=== PATIENT | male | born 1995 | race Caucasian/White ===

== ENCOUNTER 2016-10-31 12:43 | Emergency (ER) | payer OTHER ==
[~2016-10-31] VITALS: Ht 177.8 cm; Wt 86.4 kg
[~2016-10-31 12:43] MED LIST: OLAN5TAB2 PO; RISP1 PO; TRAZ-144 PO
[2016-10-31] MEDS ORDERED: PROP10 PO (12:54)
[2016-10-31] MEDS ORDERED: DOXE10 PO (12:54)
[2016-10-31] MEDS ORDERED: CEPH500 PO (12:54)
[2016-10-31 13:21] LABS: BASOPHILS # (AUTO) 0.07 K/uL (0.00-0.20); BASOPHILS % (AUTO) 0.7 % (0.0-2.0); EOSINOPHILS # (AUTO) 0.11 K/uL (0.00-0.70); EOSINOPHILS % (AUTO) 1.02 % (1.0-6.0); HEMOGLOBIN 15.7 g/dL (13.5-17.5); LYMPHOCYTES # (AUTO) 3.3 K/uL (1.0-4.8); LYMPHOCYTES % (AUTO) 31.2 % (22.0-44.0); MEAN CORPUSCULAR HEMOGLOBIN 29.4 pg (26.0-34.0); MEAN CORPUSCULAR HGB CONC 32.7 G/dL (31.0-37.0); MEAN CORPUSCULAR VOLUME 90 fL (80-100); MONOCYTES # (AUTO) 0.9 K/uL (0.1-1.0); MONOCYTES % (AUTO) 8.9 % (2.0-9.0); NEUTROPHILS # (AUTO) 6.1 K/uL (1.8-7.7); NEUTROPHILS % (AUTO) 58.2 % (40.0-70.0); PLATELET COUNT (AUTO) 279 K/uL (150-450); RED BLOOD CELL COUNT(AUTO) 5.35 MIL/uL (4.50-5.90); RED CELL DISTRIBUTION WIDTH 13.3 % (11.5-14.5); WHITE BLOOD COUNT (AUTO) 10.4 K/uL (4.5-11.0)
[2016-10-31] MEDS ORDERED: DiphenhydrAMINE HCL 50 MG/ML VIAL ONE ×2 (13:24→13:28)
[2016-10-31] MEDS ORDERED: HALOPERIDOL LACTATE 5 MG/ML VIAL ONE ×2 (13:24→13:27)
[2016-10-31] MEDS ORDERED: LORazepam 2 MG/ML VIAL ONE ×2 (13:24→13:27)
[2016-10-31 13:30] LABS: ANION GAP 13 mmol/L (8-16); CALCIUM, TOTAL 9.3 mg/dL (8.8-10.5); CARBON DIOXIDE 24 mmol/L (22-29); CHLORIDE 108 mmol/L (98-107); CREATININE 0.98 mg/dL (0.60-1.30); GLOMERULAR FILTR. RATE CALC > 60 mL/min (>60); POTASSIUM 3.5 mmol/L (3.5-5.1); SODIUM SERUM 145 mmol/L (136-145); UREA NITROGEN, BLOOD 11 mg/dL (7-18)
[2016-10-31] MEDS ORDERED: LORazepam 2 MG/ML VIAL IM ONE (13:30)
[2016-10-31] MEDS ORDERED: DiphenhydrAMINE HCL 50 MG/ML VIAL IM ONE (13:30)
[2016-10-31] MEDS ORDERED: HALOPERIDOL LACTATE 5 MG/ML VIAL IM ONE (13:30)
[2016-10-31 13:36] LABS: ALANINE AMINOTRANSFERASE 76 U/L (12-78); ALBUMIN 4.2 g/dL (3.4-5.0); ASPARTATE AMINOTRANSFERASE 33 U/L (15-37); BILIRUBIN,TOTAL 0.5 mg/dL (0.1-1.0); TOTAL PROTEIN, SERUM 7.9 g/dL (6.4-8.2)
[2016-10-31 18:44] VITALS: BP 98/52
== END 2016-10-31 19:00 | disposition short-term general hospital (02) ==
LOC: EMS 12:47 → EEVIPCON 12:47 → EMS 19:00
DX: R45.1 Restlessness and agitation (principal); R45.851 Suicidal ideations; F31.9 Bipolar disorder, unspecified; F20.9 Schizophrenia, unspecified; I10 Essential (primary) hypertension; F17.210 Nicotine dependence, cigarettes, uncomplicated
CPT/HCPCS: 36415; 80053; 85025; 96372; 99285; G0480; J1200; J1630; J2060

== ENCOUNTER 2022-11-01 07:05 | Inpatient (IN) | payer MEDICAID, OTHER ==
[~2022-11-01] VITALS: Ht 175.3 cm; Wt 85.3 kg
[~2022-11-01 07:05] MED LIST changes: +CEPH-558 PO; +DOXE10CA42 PO; -OLAN5TAB2 PO; +PROP10TA73 PO; -RISP1 PO; -TRAZ-144 PO
[2022-11-01] MEDS ORDERED: HYDR-4527 PO (07:09)
[2022-11-01] MEDS ORDERED: OLAN5TAB77 PO (07:09)
[2022-11-01] MEDS ORDERED: LAMO-24 PO (07:09)
[2022-11-01] MEDS ORDERED: LAMO25TA36 PO (07:09)
[2022-11-01 08:11] LABS: BASOPHILS % (AUTO) 0.5 % (0.0-2.0); EOSINOPHILS % (AUTO) 0.5 % (1.0-6.0); HEMOGLOBIN 14.4 g/dL (13.5-17.5); LYMPHOCYTES # (AUTO) 3.8 K/uL (1.0-4.8); LYMPHOCYTES % (AUTO) 30.2 % (22.0-44.0); MEAN CORPUSCULAR HEMOGLOBIN 29.3 pg (26.0-34.0); MEAN CORPUSCULAR HGB CONC 32.8 G/dL (31.0-37.0); MEAN CORPUSCULAR VOLUME 89 fL (80-100); MONOCYTES # (AUTO) 0.7 K/uL (0.1-1.0); MONOCYTES % (AUTO) 5.6 % (2.0-9.0); NEUTROPHILS % (AUTO) 63.2 % (40.0-70.0); PLATELET COUNT (AUTO) 359 K/uL (150-450); RED BLOOD CELL COUNT(AUTO) 4.92 MIL/uL (4.50-5.90)
[2022-11-01 08:20] LABS: ANION GAP 18 mmol/L (8-16); CARBON DIOXIDE 26 mmol/L (22-29); CHLORIDE 102 mmol/L (98-107); CREATININE 1.03 mg/dL (0.60-1.30); GLOMERULAR FILTR. RATE CALC > 60 mL/min (>60); GLUCOSE,RANDOM 130 mg/dL (70-110); POTASSIUM 3.7 mmol/L (3.5-5.1); SODIUM SERUM 146 mmol/L (136-145)
[2022-11-01 08:34] LABS: ALANINE AMINOTRANSFERASE 62 U/L (12-78); ALBUMIN 4.6 g/dL (3.4-5.0); ALKALINE PHOSPHATASE 65 U/L (46-116); ASPARTATE AMINOTRANSFERASE 34 U/L (15-37); BILIRUBIN,TOTAL 0.7 mg/dL (0.1-1.0); THYROID STIMULATING HORMONE 0.78 uIU/mL (0.36-3.74); TOTAL PROTEIN, SERUM 8.1 g/dL (6.4-8.2)
[2022-11-01 08:36] LABS: COVID AG,FIA SOURCE NASOPHARYNGEAL
[2022-11-01 08:46] LABS: AMPHET/METH SCREEN,URINE NEGATIVE (NEGATIVE); BARBITURATE SCREEN, URINE NEGATIVE (NEGATIVE); BENZODIAZEPINES SCREEN,URINE NEGATIVE (NEGATIVE); CANNABINOID SCREEN,URINE POSITIVE (NEGATIVE); COCAINE SCREEN,URINE NEGATIVE (NEGATIVE); METHADONE SCREEN, URINE NEGATIVE (NEGATIVE); OPIATE SCREEN,URINE NEGATIVE (NEGATIVE); PHENCYCLIDINE SCREEN,URINE NEGATIVE (NEGATIVE)
[2022-11-01] MEDS ORDERED: QUEtiapine FUMARATE 100 MG TABLET PO PRN (09:15)
[2022-11-02] MEDS: ZOLPIDEM TARTRATE 10 MG TABLET PO PRN ×2 (01:56→22:18)
[2022-11-02] MEDS: LamoTRIgine 25 MG TABLET PO SCH (13:02)
[2022-11-02 17:46] LABS: APPEARANCE,URINE TURBID (CLEAR); BILIRUBIN,URINE NEGATIVE (NEGATIVE); GLUCOSE, URINE (UA) NEGATIVE (NEGATIVE); KETONES,URINE NEGATIVE (NEGATIVE); LEUKOCYTE ESTERASE ,URINE NEGATIVE (NEGATIVE); NITRATE,URINE NEGATIVE (NEGATIVE); OCCULT BLOOD,URINE NEGATIVE (NEGATIVE); PROTEIN,URINE 30-70 mg/dL (NEGATIVE); UROBILINOGEN,URINE <=1.0 mg/dL (<=1.0)
[2022-11-02 18:07] VITALS: BP 112/76; PULSE 69; RESP 18; TEMP 97.6; O2SAT 98
[2022-11-02] MEDS: LORazepam 2 MG TABLET PO PRN (22:19)
[2022-11-02 22:51] VITALS: BP 121/89; PULSE 72; RESP 18; TEMP 97.9; O2SAT 99
[2022-11-03] MEDS ORDERED: LOPERAMIDE HCL 2 MG CAPSULE PO PRN (05:45)
[2022-11-03] MEDS ORDERED: PETROLATUM,WHITE 28 GM JELLY TP PRN (05:45)
[2022-11-03] MEDS ORDERED: MAGNESIUM HYDROXIDE SUSPENSION 30 ML UDCUP PO PRN (05:45)
[2022-11-03] MEDS ORDERED: IBUPROFEN 400 MG TABLET PO PRN (05:45)
[2022-11-03] MEDS ORDERED: ONDANSETRON HCL 4 MG TABLET PO PRN (05:45)
[2022-11-03] MEDS ORDERED: CloNIDine HCL 0.1 MG TABLET PO PRN (05:45)
[2022-11-03] MEDS ORDERED: MAG HYDROX/AL HYDROX/SIMETH ES 30 ML SUSPENSION UDCUP PO PRN (05:45)
[2022-11-03] MEDS ORDERED: DOCUSATE SODIUM 100 MG CAPSULE PO PRN (05:45)
[2022-11-03] MEDS ORDERED: ACETAMINOPHEN 325 MG TABLET PO PRN (05:45)
[2022-11-03] MEDS ORDERED: ALBUTEROL SULFATE HFA 90 MCG/PUFF 8 GM INHALER IH PRN (05:45)
[2022-11-03] MEDS ORDERED: GuaiFENesin/D-METHORPHAN [SUGAR-FREE] 200-20MG/10 ML SYRUP UDCUP PO PRN (05:45)
[2022-11-03] MEDS ORDERED: NICOTINE 14 MG/24 HOUR PATCH TD PRN (05:45)
[2022-11-03] MEDS: LamoTRIgine 25 MG TABLET PO SCH ×2 (08:30→11:15)
[2022-11-03 08:32] VITALS: BP 111/71; PULSE 79; RESP 17; TEMP 98; O2SAT 99
[2022-11-03] MEDS: LamoTRIgine 100 MG TABLET PO SCH (11:15)
[2022-11-03] MEDS: HydrOXYzine HCL 25 MG TABLET PO SCH ×2 (13:11→16:17)
[2022-11-03 20:25] VITALS: BP 114/61; PULSE 65; RESP 20; TEMP 97.7; O2SAT 100
[2022-11-03] MEDS: OLANZapine 5 MG TABLET PO SCH (20:41)
[2022-11-04] MEDS: HydrOXYzine HCL 25 MG TABLET PO SCH ×3 (08:22→16:09)
[2022-11-04] MEDS: LamoTRIgine 100 MG TABLET PO SCH (08:22)
[2022-11-04] MEDS: LamoTRIgine 25 MG TABLET PO SCH (08:22)
[2022-11-04 08:24] LABS: HEMOGLOBIN A1C 5.2 % (3.8-5.6)
[2022-11-04 08:31] LABS: APPEARANCE,URINE CLEAR (CLEAR); BILIRUBIN,URINE NEGATIVE (NEGATIVE); GLUCOSE, URINE (UA) NEGATIVE (NEGATIVE); KETONES,URINE TRACE mg/dL (NEGATIVE); LEUKOCYTE ESTERASE ,URINE NEGATIVE (NEGATIVE); NITRATE,URINE NEGATIVE (NEGATIVE); OCCULT BLOOD,URINE NEGATIVE (NEGATIVE); PH,URINE 6.5 (5.0-8.0); PROTEIN,URINE NEGATIVE (NEGATIVE); SPECIFIC GRAVITIY, URINE 1.011 (1.003-1.030); UROBILINOGEN,URINE <=1.0 mg/dL (<=1.0)
[2022-11-04 08:37] LABS: AMPHET/METH SCREEN,URINE NEGATIVE (NEGATIVE); BARBITURATE SCREEN, URINE NEGATIVE (NEGATIVE); BENZODIAZEPINES SCREEN,URINE NEGATIVE (NEGATIVE); CANNABINOID SCREEN,URINE POSITIVE (NEGATIVE); COCAINE SCREEN,URINE NEGATIVE (NEGATIVE); METHADONE SCREEN, URINE NEGATIVE (NEGATIVE); OPIATE SCREEN,URINE NEGATIVE (NEGATIVE); PHENCYCLIDINE SCREEN,URINE NEGATIVE (NEGATIVE)
[2022-11-04 08:39] VITALS: RESP 17
[2022-11-04 08:40] LABS: CHOL/HDL RATIO 3.4 (4.2-7.3); THYROID STIMULATING HORMONE 0.48 uIU/mL (0.36-3.74)
[2022-11-04] MEDS: OLANZapine 5 MG TABLET PO SCH (20:11)
[2022-11-04 20:24] VITALS: BP 127/77; PULSE 86; RESP 18; TEMP 97.6; O2SAT 98
[2022-11-05 08:18] VITALS: BP 95/57; PULSE 64; RESP 17; TEMP 97.6; O2SAT 60
[2022-11-05] MEDS: LamoTRIgine 25 MG TABLET PO SCH ×2 (08:18→09:00)
[2022-11-05] MEDS: HydrOXYzine HCL 25 MG TABLET PO SCH ×4 (08:18→17:38)
[2022-11-05] MEDS: LamoTRIgine 100 MG TABLET PO SCH ×2 (08:18→09:00)
[2022-11-05] MEDS: LORazepam 2 MG TABLET PO PRN (17:38)
[2022-11-05 20:24] VITALS: BP 124/62; PULSE 84; RESP 18; TEMP 98.2; O2SAT 98
[2022-11-05] MEDS: ZOLPIDEM TARTRATE 10 MG TABLET PO PRN (20:34)
[2022-11-05] MEDS: OLANZapine 5 MG TABLET PO SCH (20:34)
[2022-11-05] MEDS ORDERED: LamoTRIgine 25 MG TABLET PO SCH (21:00)
[2022-11-05] MEDS ORDERED: LamoTRIgine 100 MG TABLET PO SCH (21:00)
[2022-11-06 08:30] VITALS: BP 120/64; PULSE 74; RESP 17; TEMP 98.2; O2SAT 99
[2022-11-06] MEDS: HydrOXYzine HCL 25 MG TABLET PO SCH ×2 (08:47→12:40)
[2022-11-06 14:06] VITALS: RESP 18
[2022-11-06] MEDS ORDERED: OLAN5TAB52 PO (14:28)
[2022-11-06 15:06] VITALS: RESP 18
[2022-11-07] MEDS ORDERED: OLAN5TAB52 PO (05:28)
[2022-11-07] MEDS ORDERED: LAMO-24 PO (05:28)
[2022-11-07] MEDS ORDERED: LAMO25TA36 PO (05:28)
[2022-11-07] MEDS ORDERED: HYDR-4808 PO (05:28)
== END 2022-11-06 16:20 | disposition home or self-care (01) | DRG 750 ==
LOC: EMS 07:06 → B3A 11-02 14:12
PROVIDERS: ADMIT Psychiatry & Neurology Psychiatry; ATTEND Psychiatry & Neurology Psychiatry
DX: F25.1 Schizoaffective disorder, depressive type (principal); E87.0 Hyperosmolality and hypernatremia; R45.851 Suicidal ideations; F31.9 Bipolar disorder, unspecified; F15.20 Other stimulant dependence, uncomplicated; F41.9 Anxiety disorder, unspecified; R73.9 Hyperglycemia, unspecified; D72.829 Elevated white blood cell count, unspecified; I10 Essential (primary) hypertension; Z79.899 Other long term (current) drug therapy; Z91.148 Patient's other noncompliance with medication regimen for other reason; Z87.891 Personal history of nicotine dependence; Z91.51 Personal history of suicidal behavior
CPT/HCPCS: 80053; 80061; 80307; 81003; 83036; 84443; 85025; 86803; 87081; 87340; 99285; G0480

== ENCOUNTER 2024-12-17 16:14 | Inpatient (IN) | payer MEDICAID, OTHER ==
[~2024-12-17] VITALS: Ht 175.3 cm; Wt 98.1 kg
[~2024-12-17 16:14] MED LIST changes: -CEPH-558 PO; -DOXE10CA42 PO; +HYDR-4808 PO; +HYDR-5256 PO; +HYDR25TA83 PO; +LAMO-24 PO; +LAMO25TA36 PO; +OLAN5TAB52 PO; +PALI156D IM; -PROP10TA73 PO; +QUET100T PO
[2024-12-17] MEDS ORDERED: LORazepam 2 MG/ML VIAL ONE (16:42)
[2024-12-17] MEDS: LORazepam 2 MG/ML VIAL IM ONE (16:42)
[2024-12-17 17:56] LABS: PLATELET COUNT (AUTO) 292 K/uL (150-450); RED BLOOD CELL COUNT(AUTO) 4.46 MIL/uL (4.50-5.90); RED CELL DISTRIBUTION WIDTH 13.6 % (11.5-14.5); WHITE BLOOD COUNT (AUTO) 7.7 K/uL (4.5-11.0)
[2024-12-17 18:11] LABS: COVID AG,FIA SOURCE NASAL SWAB
[2024-12-17 18:13] LABS: CALCIUM, TOTAL 8.6 mg/dL (8.8-10.5); CREATININE 0.75 mg/dL (0.60-1.30); GLOMERULAR FILTR. RATE CALC > 60 mL/min (>60); GLUCOSE,RANDOM 128 mg/dL (70-110); SODIUM SERUM 137 mmol/L (136-145); UREA NITROGEN, BLOOD 12 mg/dL (7-18)
[2024-12-17 18:21] LABS: ALCOHOL, BLOOD (SERUM) < 3 mg/dL (0-10)
[2024-12-17 18:33] LABS: SARS-COV2 (COVID) ANTIGEN,FIA Negative (Negative)
[2024-12-18 00:37] VITALS: BP 119/81; PULSE 65; RESP 18; TEMP 97.4
[2024-12-18] MEDS ORDERED: NICOTINE 14 MG/24 HOUR PATCH TD PRN (05:45)
[2024-12-18] MEDS ORDERED: ALBUTEROL SULFATE HFA 90 MCG/PUFF 8 GM INHALER IH PRN (05:45)
[2024-12-18] MEDS ORDERED: IBUPROFEN 400 MG TABLET PO PRN (05:45)
[2024-12-18] MEDS ORDERED: PETROLATUM,WHITE 28 GM JELLY TP PRN (05:45)
[2024-12-18] MEDS ORDERED: GuaiFENesin/D-METHORPHAN [SUGAR-FREE] 200-20MG/10 ML SYRUP UDCUP PO PRN (05:45)
[2024-12-18] MEDS ORDERED: MAG HYDROX/ALUMINUM HYD/SIMETH ES 30 ML SUSPENSION UDCUP PO PRN (05:45)
[2024-12-18] MEDS ORDERED: LOPERAMIDE HCL 2 MG CAPSULE PO PRN (05:45)
[2024-12-18] MEDS ORDERED: ACETAMINOPHEN 325 MG TABLET PO PRN (05:45)
[2024-12-18] MEDS ORDERED: DOCUSATE SODIUM 100 MG CAPSULE PO PRN (05:45)
[2024-12-18] MEDS ORDERED: ONDANSETRON 4 MG TABLET PO PRN (05:45)
[2024-12-18] MEDS ORDERED: MAGNESIUM HYDROXIDE SUSPENSION 30 ML UDCUP PO PRN (05:45)
[2024-12-18 09:18] LABS: CHOL/HDL RATIO 3.5 (4.2-7.3); LDL CHOL (CALC.) 102.0 mg/dL (0-130)
[2024-12-18 09:20] VITALS: BP 115/79; PULSE 104; RESP 18; TEMP 97.8; O2SAT 100
[2024-12-18 10:12] LABS: ASPARTATE AMINOTRANSFERASE 73 U/L (15-37); CALCIUM, TOTAL 9.1 mg/dL (8.8-10.5); CREATININE 0.88 mg/dL (0.60-1.30); GLOMERULAR FILTR. RATE CALC > 60 mL/min (>60); GLUCOSE,RANDOM 102 mg/dL (70-110); SODIUM SERUM 137 mmol/L (136-145); TOTAL PROTEIN, SERUM 7.4 g/dL (6.4-8.2); UREA NITROGEN, BLOOD 15 mg/dL (7-18)
[2024-12-18 11:45] LABS: APPEARANCE,URINE CLEAR (CLEAR); GLUCOSE, URINE (UA) >=1000 mg/dL (NEGATIVE); LEUKOCYTE ESTERASE ,URINE NEGATIVE (NEGATIVE); NITRATE,URINE NEGATIVE (NEGATIVE); OCCULT BLOOD,URINE NEGATIVE (NEGATIVE); PH,URINE DRUG SCREEN 5.0 (5.0-8.0); SPECIFIC GRAVITIY, URINE 1.008 (1.003-1.030)
[2024-12-18 11:47] LABS: ALCOHOL, URINE DRUG SCREEN NEGATIVE (NEGATIVE); AMPHET/METH SCREEN,URINE NEGATIVE (NEGATIVE); BARBITURATE SCREEN, URINE NEGATIVE (NEGATIVE); CANNABINOID SCREEN,URINE NEGATIVE (NEGATIVE); COCAINE SCREEN,URINE NEGATIVE (NEGATIVE); METHADONE SCREEN, URINE NEGATIVE (NEGATIVE)
[2024-12-18 12:01] LABS: SQUAMOUS EPITHELIAL CELL,UR None Seen /LPF (None Seen)
[2024-12-18 21:23] VITALS: RESP 17
[2024-12-19 12:04] VITALS: BP 122/84; PULSE 100; RESP 18; TEMP 98; O2SAT 97
[2024-12-19 21:36] VITALS: BP 100/64; PULSE 99; RESP 18; TEMP 97.6; O2SAT 99
[2024-12-19] MEDS: ZOLPIDEM TARTRATE 10 MG TABLET PO PRN (23:14)
[2024-12-20 08:46] VITALS: BP 127/100; PULSE 69; RESP 16; TEMP 98.2; O2SAT 100
[2024-12-20] MEDS ORDERED: LORazepam 2 MG/ML VIAL ONE (09:26)
[2024-12-20] MEDS: LORazepam 2 MG/ML VIAL IM ONE (09:45)
[2024-12-20 21:23] VITALS: RESP 18
[2024-12-21 20:17] VITALS: BP 112/80; PULSE 96; RESP 16; TEMP 98.3; O2SAT 100
[2024-12-22 08:32] VITALS: BP 118/75; PULSE 100; RESP 16; TEMP 97.7; O2SAT 100
[2024-12-22 20:37] VITALS: BP 116/74; PULSE 100; RESP 16; TEMP 97.8; O2SAT 100
[2024-12-23 08:25] VITALS: BP 117/83; PULSE 88; RESP 16; TEMP 97.8; O2SAT 98
[2024-12-23 21:15] VITALS: BP 114/79; PULSE 90; RESP 18; TEMP 97.9; O2SAT 98
[2024-12-24 08:17] VITALS: BP 121/75; PULSE 91; RESP 16; TEMP 98.1; O2SAT 99
[2024-12-24 20:48] VITALS: BP 150/98; PULSE 97; RESP 18; TEMP 97.4; O2SAT 100
[2024-12-25 08:14] VITALS: BP 120/81; PULSE 70; RESP 18; TEMP 97.7; O2SAT 100
[2024-12-25 19:51] VITALS: BP 138/92; PULSE 95; RESP 16; TEMP 98.1; O2SAT 100
[2024-12-25 20:05] VITALS: BP 138/92; PULSE 95; RESP 16; TEMP 98.1; O2SAT 100
[2024-12-26 08:34] VITALS: BP 115/77; PULSE 94; RESP 17; TEMP 98.2; O2SAT 100
[2024-12-26 20:08] VITALS: BP 123/88; PULSE 109; RESP 18; TEMP 98.5; O2SAT 99
[2024-12-27 09:28] VITALS: BP 128/79; PULSE 84; RESP 16; TEMP 97.7; O2SAT 100
[2024-12-27 21:09] VITALS: BP 123/96; PULSE 106; RESP 18; TEMP 97.9; O2SAT 99
[2024-12-28 09:55] VITALS: BP 118/79; PULSE 78; RESP 18; TEMP 97.7; O2SAT 95
[2024-12-28 20:45] VITALS: BP 140/96; PULSE 100; RESP 16; TEMP 97.7; O2SAT 99
[2024-12-29] MEDS: PALIPERIDONE PALMITATE 234 MG/1.5 ML SYRINGE IM ONE (09:13)
[2024-12-29 09:25] VITALS: BP 102/70; PULSE 66; RESP 16; TEMP 97.1; O2SAT 96
[2024-12-29 20:01] VITALS: BP 124/96; PULSE 91; RESP 18; TEMP 97.1; O2SAT 97
[2024-12-29] MEDS ORDERED: HYDR25TA83 PO (22:08)
[2024-12-29] MEDS ORDERED: LAMO-24 PO (22:08)
[2024-12-29] MEDS ORDERED: OLAN10TA74 PO (22:08)
[2024-12-29] MEDS ORDERED: PALI234D IM (22:08)
[2024-12-29] MEDS ORDERED: OLAN5TAB52 PO (22:08)
[2024-12-29] MEDS ORDERED: LAMO25TA36 PO (22:08)
[2024-12-30 10:59] VITALS: BP 122/84; PULSE 98; RESP 16; TEMP 98.1; O2SAT 98
[2025-01-19] MEDS ORDERED: PALIPERIDONE PALMITATE 234 MG/1.5 ML SYRINGE IM SCH (09:00)
== END 2024-12-30 10:40 | disposition home or self-care (01) | DRG 750 ==
LOC: EMS 16:14 → 3EC 12-18
PROVIDERS: ADMIT Psychiatry & Neurology Child & Adolescent Psychiatry; ATTEND Psychiatry & Neurology Child & Adolescent Psychiatry
PROC: GZHZZZZ Group Psychotherapy (ICD-10-PCS; principal; 2024-12-19)
PROC: GZ58ZZZ Individual Psychotherapy, Cognitive-Behavioral (ICD-10-PCS; 2024-12-19)
PROC: GZ56ZZZ Individual Psychotherapy, Supportive (ICD-10-PCS; 2024-12-19)
DX: F20.0 Paranoid schizophrenia (principal); R45.851 Suicidal ideations; F32.9 Major depressive disorder, single episode, unspecified; D64.9 Anemia, unspecified; I10 Essential (primary) hypertension; G47.00 Insomnia, unspecified; Z20.822 Contact with and (suspected) exposure to COVID-19; F41.1 Generalized anxiety disorder; Z79.899 Other long term (current) drug therapy; Z91.410 Personal history of adult physical and sexual abuse
CPT/HCPCS: 80048; 80053; 80061; 80307; 81001; 83036; 84443; 85025; 93005; 96372; 99285; G0480; G0481; J1200; J1630; J2060; J3230